=== PATIENT | female | born 1995 | race Caucasian/White ===

== ENCOUNTER 2023-10-09 02:19 | Emergency (ER) | payer OTHER ==
[~2023-10-09] VITALS: Ht 152.4 cm; Wt 68.5 kg
[2023-10-09 02:23] VITALS: PULSE 80; RESP 18; TEMP 98.6; O2SAT 97
[2023-10-09] MEDS ORDERED: CLINDAMYCIN HC150 MG PO (02:31)
[2023-10-09] MEDS ORDERED: ONDANSETRON ODT4 MG SL (02:55)
== END 2023-10-09 02:58 | disposition home or self-care (01) ==
LOC: ER 02:29
DX: K08.89 Other specified disorders of teeth and supporting structures (principal); R51.9 Headache, unspecified; F17.210 Nicotine dependence, cigarettes, uncomplicated
CPT/HCPCS: 99282

== ENCOUNTER 2024-03-27 15:58 | Emergency (ER) | payer OTHER ==
[~2024-03-27] VITALS: Ht 152.4 cm; Wt 68.5 kg
[~2024-03-27 15:58] MED LIST: CLINDAMYCIN HC150 MG PO; ONDANSETRON ODT4 MG SL
[2024-03-27 16:36] VITALS: PULSE 79; RESP 19; TEMP 99.2
[2024-03-27 17:05] LABS: PREGNANCY TEST, URINE NEGATIVE (NEGATIVE)
[2024-03-27 17:06] LABS: BILIRUBIN,URINE 1+ (NEGATIVE); CLARITY,URINE CLOUDY (CLEAR); COLOR,URINE AMBER (YELLOW); GLUCOSE, URINE NEGATIVE (NEGATIVE); KETONES,URINE 1+ (NEGATIVE); LEUKOCYTE ESTERASE ,URINE NEGATIVE (NEGATIVE); NITRITE,URINE NEGATIVE (NEGATIVE); PH,URINE 6 (5 - 7); PROTEIN,URINE DIPSTICK 1+ (NEGATIVE); URINE UROBILINOGEN 1 mg/dL (0.2 - 1)
[2024-03-27 17:36] LABS: BACTERIA,URINE MANY /HPF; EPITHELIAL CELLS,URINE MANY /LPF; MUCUS,URINE MANY (RARE)
[2024-03-27 18:56] VITALS: BP 95/68; PULSE 69; RESP 16; TEMP 98.3; O2SAT 99
== END 2024-03-27 19:00 | disposition home or self-care (01) ==
LOC: ER 17:00
DX: R11.0 Nausea (principal); R53.83 Other fatigue; E28.2 Polycystic ovarian syndrome
CPT/HCPCS: 81001; 81025; 87086; 87186; 99283